=== PATIENT | female | born 1955 | race Caucasian/White ===

== ENCOUNTER 2023-08-15 10:23 | Emergency (ER) | payer MEDICARE ==
--- NOTE | 2023-08-15 10:25 | ERPHSYRPT ---
- History of Present Illness Time Seen by Provider: 08/15/23 10:25 Source: patient, family Exam Limitations: no limitations Physician History: This is a 68-year-old white female patient who is known to have chronic right shoulder pain and it has been assumed she has a right shoulder rotator cuff tear. She has had the site injected and is currently undergoing physical therapy without much benefit. Today, she was in her chicken coop and she got her feet caught up and tripped falling onto her right shoulder and right upper arm. She did not hit her head. She has no head or neck injury or pain complaints. The pain is primarily in her shoulder and right upper arm. It is described as a constant ache and measures 7 out of 10. Occurred: just prior to arrival Reason for Fall: tripped Injuries/Pain Location: upper extremity Loss of Consciousness: no loss of consciousness Quality: aching Severity of Pain-Max: moderate (Shoulder and right upper arm) Severity of Pain-Current: moderate Modifying Factors: Improves With: movement Associated Symptoms (Fall): extremity injury (Right shoulder and right upper arm) Allergies/Adverse Reactions: cranberry Allergy (Verified 08/15/23 10:41) Travel Risk - International Travel Have you traveled outside of the country in past 3 weeks: No - Emerging Infectious Disease Are you exhibiting symptoms associated with any current EIDs: No - Review of Systems Constitutional: No Symptoms Eyes: No Symptoms Ears, Nose, & Throat: No Symptoms Respiratory: No Symptoms Cardiac: No Symptoms Abdominal/Gastrointestinal: No Symptoms Genitourinary Symptoms: No Symptoms Musculoskeletal: Fall, Injury (Right shoulder and right upper arm) Skin: No Symptoms Neurological: No Symptoms Psychological: No Symptoms Endocrine: No Symptoms Hematologic/Lymphatic: No Symptoms Immunological/Allergic: No Symptoms All Other Systems: Reviewed and Negative - Past Medical History Pertinent Past Medical History: No - Past Surgical History Past Surgical History: No - Nursing Vital Signs Nursing Vital Signs: Initial Vital Signs Temperature 96.6 F 08/15/23 10:43 Pulse Rate 64 08/15/23 10:43 Respiratory Rate 18 08/15/23 10:43 Blood Pressure 172/88 08/15/23 10:43 O2 Sat by Pulse Oximetry 97 08/15/23 10:43 Pain Scale Pain Intensity 7 - [place] Coma Score Best Eye Response ([place]): (4) open spontaneously Best Verbal Response ([place]): (5) oriented Best Motor Response ([place]): (6) obeys commands [place] Total: 15 - Physical Exam General Appearance: no apparent distress, alert Head Injury: no evidence of injury Eye Exam: PERRL/EOMI, eyes nml inspection ENT Exam: airway nml, nml ext.inspection, No evidence of ENT injury Neck Exam: supple, trachea midline, full range of motion, normal alignment, normal inspection Respiratory/Chest Exam: normal breath sounds, No chest tenderness, No respiratory distress, No ecchymosis, No crepitus Cardiovascular Exam: normal heart sounds, regular rate/rhythm Gastrointestinal Exam: soft, normal bowel sounds, No tenderness Rectal Exam: not done Back Exam: normal inspection, normal range of motion, No CVA tenderness, No vertebral tenderness Extremity Exam: normal inspection, pelvis stable, limited range of motion (Shoulder and right upper arm), tenderness (Right shoulder and right upper arm), No deformities Neurologic Exam: alert, oriented x 3, cooperative, 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, normal mood/affect, nml cerebellar function, nml station & gait, sensation nml Skin Exam: normal color, warm, dry SpO2 Interpretation: normal O2 Delivery: Room Air - Course Nursing assessment & vital signs reviewed: Yes Ordered Tests: Active Orders 24 hr Category Date Time Status ELBOW (MINIMUM 3 VIEWS) Stat Exams 08/15/23 10:44 Completed HUMERUS Stat Exams 08/15/23 10:44 Completed SHOULDER Stat Exams 08/15/23 10:44 Completed - Progress Progress: unchanged, pain not gone completely, re-examined Progress Note: 08/15/23 11:30 My medical decision making and the assignment of low to moderate complexity of this patient's medical issue today is based on review of the patient's past medical history, review of the patient's medication list, review patient drug allergy list, history present illness and physical findings on examination. The workup does not require any laboratory studies. However, I will order an x-ray of the right shoulder, right humerus and right elbow. Differential diagnosis includes fracture/dislocation right shoulder, fracture dislocation right humerus, fracture/dislocation right elbow 08/15/23 11:48 The radiologist interpreted the x-rays and I reviewed the impression: Right shoulder x-ray shows degenerative changes without acute fracture or dislocation. Right humerus x-ray shows no acute fracture or dislocation. Right elbow x-ray shows degenerative changes and possible old injury without evidence of acute fracture or dislocation. Counseled pt/family regarding: diagnosis, need for follow-up, rad results Medical Desision Making - Independent Historian Additional History obtained from: Family - Diagnostic Testing Diagnostic test were ordered, analyzed, and reviewed by me: Yes Radiological Interpretation: Reviewed by me, Teleradiologist Report - Risk of complications The pt has a mod risk of morbidity or mortality based on: Need for prescription drug management - Departure Departure Disposition: Home Clinical Impression: Fall with no significant injury Condition: Stable Critical Care Time: No Referrals: LIZ TREJO MD [Primary Care Provider] - Follow up/PCP as directed Additional Instructions: Wear sling for comfort. Take the medications as prescribed. Follow-up in [facility] orthopedic clinic. You do not need an appointment. It is open Tuesday through Tuesday 8 AM to 10 AM. Prescriptions: Oxycodone HCl/Acetaminophen [Percocet 5-325 mg Tablet] 1 each PO Q8H PRN PRN #6 tablet MDD 3 PRN Reason: Moderate To Severe Pain
[2023-08-15 10:54] VITALS: BP 172/88; PULSE 64; RESP 18; TEMP 96.6; O2SAT 97
--- NOTE | 2023-08-15 11:41 | XRAY ---
Indication: Pain following fall. Comparison: None 3 view right shoulder demonstrates osteopenia, mild glenohumeral/AC degenerative changes, and mild degenerative changes visualized spine. No other bony, articular, or soft tissue abnormalities.
--- NOTE | 2023-08-15 11:41 | XRAY ---
Indication: Pain following fall. Comparison: None 2 view right humerus demonstrates osteopenia and right shoulder degenerative changes reported separately. No other bony, articular, or soft tissue abnormalities.
--- NOTE | 2023-08-15 11:45 | XRAY ---
Indication: Pain following fall. Comparison: None 3 view right elbow demonstrates 2 mm ossification posterior olecranon process on lateral view without effusion either degenerative versus old injury. Elsewhere osteopenia, tiny spurring lateral epicondyle/coronoid process, and a few benign-appearing soft tissue calcifications calcifications. No other bony, articular, or soft tissue abnormalities.
== END 2023-08-15 12:21 | disposition home or self-care (01) ==
LOC: ED 10:23
DX: Z04.3 Encounter for examination and observation following other accident (principal); M25.511 Pain in right shoulder; M79.621 Pain in right upper arm
CPT/HCPCS: 73030; 73060; 73080; 99283